=== PATIENT | female | born 1975 | race Two or more races ===

== ENCOUNTER 2016-04-26 11:34 | Emergency (ER) | payer MEDICAID ==
[~2016-04-26] VITALS: Ht 165.1 cm; Wt 67.1 kg
[2016-04-26 11:41] VITALS: BP 141/68
[2016-04-26] MEDS ORDERED: ACETAMINOPHEN 650 MG/20.3 ML UDC PO ONE (13:00)
[2016-04-26] MEDS ORDERED: HYDROCODONE/APAP 5/325MG 1 EACH TABLET PO ONE (13:00)
[2016-04-26] MEDS ORDERED: HYDROCODONE/APAP 5/325MG 1 EACH TABLET ONE (13:04)
[2016-04-26] MEDS ORDERED: ACETAMINOPHEN 325 MG TABLET ONE (13:04)
== END 2016-04-26 13:13 | disposition home or self-care (01) ==
LOC: ER 11:42
DX: S39.012A Strain of muscle, fascia and tendon of lower back, initial encounter (principal); X58.XXXA Exposure to other specified factors, initial encounter; Y92.89 Other specified places as the place of occurrence of the external cause; Y93.89 Activity, other specified; Y99.8 Other external cause status
CPT/HCPCS: 99283; A4606; Z7610